=== PATIENT | male | born 1995 | race Two or more races ===

== ENCOUNTER 2025-08-17 14:00 | Emergency (ER) | payer OTHER ==
[~2025-08-17] VITALS: Ht 165.1 cm; Wt 43.5 kg
[2025-08-17 14:09] VITALS: BP 140/104; TEMP 97.9
[2025-08-17] MEDS ORDERED: SELE180S13 TOP (14:44)
[2025-08-17] MEDS ORDERED: GRIS500T6 PO (14:44)
[2025-08-17 14:50] VITALS: O2SAT 96
== END 2025-08-17 14:51 | disposition home or self-care (01) ==
LOC: ER 14:07
DX: B35.0 Tinea barbae and tinea capitis (principal); K74.60 Unspecified cirrhosis of liver